=== PATIENT | female | born 1975 ===

== ENCOUNTER 2022-03-10 11:40 | Outpatient (CLI) | payer OTHER | END 2022-03-10 11:42 | disposition home or self-care (01) | LOC: MRI 11:40 | PROVIDERS: ATTEND General Practice | DX: G71.11 Myotonic muscular dystrophy (principal); R94.09 Abnormal results of other function studies of central nervous system; R55 Syncope and collapse; R56.9 Unspecified convulsions | CPT/HCPCS: 70551 ==